=== PATIENT | male | born 1970 | race Caucasian/White ===

== ENCOUNTER 2020-10-13 19:23 | Emergency (ER) | payer BC ==
[2020-10-13] MEDS ORDERED: Aspirin 81 MG Tab.Chew PO ONE (19:35)
[2020-10-13] MEDS ORDERED: Sodium Chloride 0.9% 10 ML Syringe FLUSH PRN (19:35)
--- NOTE | 2020-10-13 19:42 | EDM.PDOC ---
ED HPI GENERAL MEDICAL PROBLEM - General Chief Complaint: Chest Pain Stated Complaint: CHEST PAIN, LT ARM NUMBNESS Time Seen by Provider: 10/13/20 19:25 Source of Information: Reports: Patient History Limitations: Reports: No Limitations - History of Present Illness INITIAL COMMENTS - FREE TEXT/NARRATIVE: Patient presents to the ER today due to new onset back pain at 1700, remained present throughout his daughter's volleyball game then decreased in nature and mid-sternal chest pain started as they left game. He states that then his left arm felt numb sensation stll present rated as 1/10). He states when he had sharp episode [employer] it was 7/10 sharp, now in ER rates CP as dull/pressure sensation 4/10. Does report sensation of SOB with CP episode. Denies any other associated symptoms PMH/Meds--denies Allergies--Sulfa Tob/Drug--denies EtOH--occassional Denies having had COVID infection, states he has had his COVID immunization (Apr 2020) Onset: Today Onset Time: 17:00 Location: Reports: Chest, Back, Upper Extremity, Left Quality: Reports: Dull, Pressure, Sharp, Stabbing, Other (numbness sensation to arm) Associated Symptoms: Reports: Shortness of Breath chest pain Pain Score (Numeric/FACES): 4 upper back pain Pain Score (Numeric/FACES): 1 - Related Data Allergies Allergy/AdvReac Type Severity Reaction Status Date / Time Sulfa (Sulfonamide Allergy Airway Verified 10/13/20 19:32 Antibiotics) Tightness Home Meds: Home Meds NK [No Known Home Meds] 10/13/20 [History] ED ROS GENERAL - Review of Systems Review Of Systems: Comprehensive ROS is negative, except as noted in HPI. Constitutional: Reports: No Symptoms HEENT: Reports: No Symptoms Respiratory: Reports: Shortness of Breath Cardiovascular: Reports: Chest Pain GI/Abdominal: Reports: No Symptoms Musculoskeletal: Reports: Arm Pain Neurological: Reports: No Symptoms ED EXAM, GENERAL - Physical Exam Exam: See Below Exam Limited By: No Limitations General Appearance: Alert, WD/WN, No Apparent Distress Eye Exam: Bilateral Eye: EOMI, Normal Inspection, PERRL Ears: Normal External Exam, Hearing Grossly Normal Nose: Normal Inspection Throat/Mouth: Normal Inspection, Normal Voice, No Airway Compromise Head: Atraumatic, Normocephalic Neck: Normal Inspection, Supple, Full Range of Motion Respiratory/Chest: No Respiratory Distress, Lungs Clear, Normal Breath Sounds. No: Chest Non-Tender (palpatory tenderness mid-sternal to left side of chest similar to pain he is having) Cardiovascular: Normal Peripheral Pulses, Regular Rate, Rhythm, No Edema, No Murmur Peripheral Pulses: 2+: Radial (L), Radial (R), Dorsalis Pedis (L), Dorsalis Pedis (R) GI/Abdominal: Normal Bowel Sounds, Soft, Non-Tender, No Distention (Male) Exam: Deferred Rectal (Males) Exam: Deferred Back Exam: Normal Inspection, Full Range of Motion Extremities: Normal Inspection, Normal Range of Motion, No Pedal Edema, Normal Capillary Refill Neurological: Alert, Oriented, Normal Cognition, No Motor/Sensory Deficits Psychiatric: Normal Affect, Normal Mood Skin Exam: Warm, Dry, Intact, Normal Color #1 Interpretation EKG Date: 10/13/20 Time: 19:25 (read at bedside by this physician) Rhythm: NSR Rate (Beats/Min): 73 [place]: Normal P-Wave: Present (IL-148) QRS: Normal (QRS-85) ST-T: Normal QT: Normal (QT/QTc-380/419) Comparison: NA - No Prior EKG EKG Interpretation Comments: normal EKG Course - Vital Signs Text/Narrative:: 2033--room to discuss with patient and today's ER findings at this point initial troponin is negative as well as initial EKG chest x-ray was unremarkable as well as remaining labs except for creatinine1.4 was noted to be mildly elevated without elevation of BUN. Patient was able to pull up his labs from recent physical his total cholesterol was 207 triglycerides 252 LDL 102 HDL was 52 as well as his creatinine0.88 is with patient recommendation for repeat troponin in 2 hours/2129 would be 4 h pain onset would expect at that point to see some elevation if this was cardiac in nature. Given musculoskeletal discomfort during my exam discussed with him dose of Toradol which she has agreed to. Did discuss with patient recommendation for repeat labs with good hydration over the next week through his PCM to recheck creatinine it is likely that he is been low on his fluid intake. He states that he has been out camping and [place] have been at the music festival for the last 4 days and he may have had some decrease in oral intake. ACC/AHA 10-year risk assessment is 3.3% 2206--in room to d/w patient and repeat troponin remains negative. patient states that pain has improved after IV toradol. d/w them 10-yr risk assessment 3.3%. at this time they are comfortable with d/c home, return if any worsening symptoms of concern to nearest ER. recommend PCM follow up in the next 3-5 d ays for further evaluation/referral and repeat labs as previously discussed. verbalized understanding/agreement with plan of care. ready for d/c Last Recorded V/S: Last Vital Signs Temp 98.2 F 10/13/20 19:42 Pulse 67 10/13/20 21:10 Resp 18 10/13/20 21:10 BP 117/75 10/13/20 21:10 Pulse Ox 94 L 10/13/20 21:10 - Orders/Labs/Meds Orders: Active Orders 24 hr Category Date Time Status Cardiac Monitoring [RC] .As Directed Care 10/13/20 19:35 Active EKG Documentation Completion [RC] ASDIRECTED Care 10/13/20 19:36 Active Oxygen Therapy [RC] PRN Care 10/13/20 19:35 Active Pulse Oximetry [RC] CONTINUOUS Care 10/13/20 19:35 Active Sodium Chloride 0.9% [Saline Flush] Med 10/13/20 19:35 Active 10 ml FLUSH ASDIRECTED PRN Saline Lock Insert [OM.PC] Stat Oth 10/13/20 19:35 Ordered EKG 12 Lead [EK] Stat Ther 10/13/20 19:36 Ordered Medication Orders Sodium Chloride (Sodium Chloride 0.9% 10 Ml Syringe) 10 ml FLUSH ASDIRECTED PRN PRN Reason: Keep Vein Open Last Admin: 10/13/20 19:49 Dose: 10 ml Documented by: BINTA Labs: Laboratory Tests 10/13/20 10/13/20 10/13/20 Range/Units 19:35 19:35 21:37 WBC 5.5 (4.5-11.0) K/uL RBC 5.12 (4.30-5.90) M/uL Hgb 14.7 (12.0-15.0) g/dL Hct 44.0 (40.0-54.0) % MCV 86 (80-98) fL MCH 29 (27-31) pg MCHC 33 (32-36) % Plt Count 194 (150-400) K/uL Neut % (Auto) 45.6 (36-66) % Lymph % (Auto) 37.4 (24-44) % Divide % (Auto) 11.3 H (2-6) % Eos % (Auto) 5.7 H (2-4) % Baso % (Auto) 0.0 (0-1) % Sodium 141 (140-148) mmol/L Potassium 4.2 (3.6-5.2) mmol/L Chloride 104 (100-108) mmol/L Carbon Dioxide 31 (21-32) mmol/L Anion Gap 6.5 (5.0-14.0) mmol/L BUN 18 (7-18) mg/dL Creatinine 1.4 H (0.8-1.3) mg/dL Est Cr Clr Drug Dosing 75.45 mL/min Estimated GFR (MDRD) 54 L (>60) Glucose 91 (74-106) mg/dL Calcium 8.7 (8.5-10.1) mg/dL Magnesium 2.2 (1.8-2.4) mg/dL Total Bilirubin 0.3 (0.2-1.0) mg/dL AST 26 (15-37) U/L ALT 65 (12-78) U/L Alkaline Phosphatase 77 (46-116) U/L Troponin I < 0.017 < 0.017 (0.000-0.056) ng/mL Total Protein 7.1 (6.4-8.2) g/dL Albumin 3.7 (3.4-5.0) g/dL Globulin 3.4 (2.3-3.5) g/dL Albumin/Globulin Ratio 1.1 L (1.2-2.2) 2021--negative trop , 0.017, of note he does have mildly elevated creat- 1.4/decreased GFR-54 with normal BUN. Will recommend ensuring he is drinking plenty of fluids and have this followed up with PCM in 1 week for repeat lab. will repeat trop in 2 hours for trending. Meds: Medications Generic Name Dose Route Start Last Admin Trade Name Freq PRN Reason Stop Dose Admin Sodium Chloride 10 ml 10/13/20 19:35 10/13/20 19:49 Sodium Chloride 0.9% 10 Ml Syringe FLUSH 10 ml ASDIRECTED PRN Administration Keep Vein Open Discontinued Medications Generic Name Dose Route Start Last Admin Trade Name Jayshree PRN Reason Stop Dose Admin Aspirin 324 mg 10/13/20 19:35 10/13/20 19:47 Aspirin 81 Mg Tab.Chew PO 10/13/20 19:36 324 mg ONETIME ONE Administration Ketorolac Tromethamine 30 mg 10/13/20 20:39 10/13/20 21:00 Ketorolac 30 Mg/Ml Sdv IVPUSH 10/13/20 20:40 30 mg ONETIME ONE Administration Departure - Departure Time of Disposition: 22:14 Disposition: Home, Self-Care 01 Condition: Good Clinical Impression: Chest pain, Anterior chest wall pain, Elevated serum creatinine Instructions: Nonspecific Chest Pain, Adult, [id number], Chest Wall Pain, [id number] Referrals: [facility] [Primary Care Provider] - Forms: ED Department Discharge Additional Instructions: Ensure you are drinking plenty of fluids--water, juice, sports drinks of choice to stay well hydrated If you have any increasing symptoms or further concerns return to the ER for further evaluation Contact your family doctor/PCM for ER follow up care in the next 3-5 days--recommended by this physician is further cardiac testing (this may be through a cardiac stress test or cardiac CT scan). It is also recommended that your have your creatinine recheck in the next week after ensuring your are d rinking plenty of fluids to ensure your kidneys are well hydrated Sepsis Event Note (ED) - Focused Exam Vital Signs: Vital Signs Temp Pulse Resp BP Pulse Ox 10/13/20 21:10 67 18 117/75 94 L 10/13/20 20:56 69 14 123/72 95 10/13/20 20:39 69 18 131/82 95 10/13/20 20:25 70 21 H 126/81 96 10/13/20 20:09 74 17 117/74 97 10/13/20 19:55 79 11 L 117/78 95 10/13/20 19:42 98.2 F 77 13 125/86 98 10/13/20 19:39 78 12 133/88 96 10/13/20 19:32 98.2 F 77 13 125/86 98 - My Orders Last 24 Hours: My Active Orders 10/13/20 19:35 Cardiac Monitoring [RC] .As Directed Oxygen Therapy [RC] PRN Pulse Oximetry [RC] CONTINUOUS Sodium Chloride 0.9% [Saline Flush] 10 ml FLUSH ASDIRECTED PRN Saline Lock Insert [OM.PC] Stat 10/13/20 19:36 EKG Documentation Completion [RC] ASDIRECTED EKG 12 Lead [EK] Stat - Assessment/Plan Last 24 Hours: My Active Orders 10/13/20 19:35 Cardiac Monitoring [RC] .As Directed Oxygen Therapy [RC] PRN Pulse Oximetry [RC] CONTINUOUS Sodium Chloride 0.9% [Saline Flush] 10 ml FLUSH ASDIRECTED PRN Saline Lock Insert [OM.PC] Stat 10/13/20 19:36 EKG Documentation Completion [RC] ASDIRECTED EKG 12 Lead [EK] Stat
--- NOTE | 2020-10-13 20:17 | CRLCR ---
For Patients: As a result of the Century Cures Act, medical imaging exams and procedure reports are released immediately into your electronic medical record. You may view this report before your referring provider. If you have questions, please contact your health care provider. INDICATION: CHEST PAIN TECHNIQUE: Chest 1 view. COMPARISON: None. FINDINGS: Cardiovascular and mediastinum: Heart size and vasculature are normal in caliber and appearance. Mediastinum is within normal limits. Lungs and pleural space: Lungs are clear. No sign of infiltrate or mass. No sign of pleural effusion. No pneumothorax. Bones and soft tissues: No significant findings. IMPRESSION: Unremarkable chest. Dictated by: Donn Gonzalez MD @ 10/13/2020 20:16:31 (Electronically Signed)
[2020-10-13] MEDS ORDERED: Ketorolac 30 MG/ML SDV IVPUSH ONE (20:39)
== END 2020-10-13 22:27 | disposition home or self-care (01) ==
LOC: JP.ED 19:23
DX: R07.2 Precordial pain (principal); R07.89 Other chest pain; R94.4 Abnormal results of kidney function studies; Z88.2 Allergy status to sulfonamides
CPT/HCPCS: 36415; 71045; 80053; 83735; 84484; 85025; 93005; 96374; 99285; A9270; J1885

== ENCOUNTER 2023-03-11 07:24 | Day surgery (SDC) | payer BC, OTHER ==
[~2023-03-11 07:24] MED LIST: Midazolam 1 MG/ML 2 ML SDV ONE; Propofol 200 MG/20 ML SDV ONE; fentaNYL 50 MCG/ML SDV ONE
[2023-03-11] MEDS ORDERED: Sodium Chloride 0.9% 1,000 ML IV SCH (08:00)
== END 2023-03-11 09:40 | disposition home or self-care (01) ==
LOC: JP.SDS 07:24
PROVIDERS: ATTEND Surgery
DX: K29.70 Gastritis, unspecified, without bleeding (principal)
CPT/HCPCS: 43239; 88305; J2250; J2704; J3010; J7030

== ENCOUNTER 2025-02-18 07:06 | Emergency (ER) | payer OTHER ==
[2025-02-18 07:30] LABS: BASOPHILS ABSOLUTE AUTO 0.01 K/uL (0.00-0.10); BASOPHILS PERCENT AUTO 0.2 % (0.1-1.3); EOSINOPHILS ABSOLUTE AUTO 0.29 K/uL (0.00-0.40); EOSINOPHILS PERCENT AUTO 6.4 % (0.0-5.4); IMMATURE GRAN ABSOLUTE AUTO 0.01 K/uL (0.00-0.23); IMMATURE GRAN PERCENT AUTO 0.2 % (0.0-0.7); LYMPHOCYTES ABSOLUTE AUTO 1.25 K/uL (0.8-3.3); LYMPHOCYTES PERCENT AUTO 27.5 % (11.4-47.7); MONOCYTES ABSOLUTE AUTO 0.44 K/uL (0.20-0.90); MONOCYTES PERCENT AUTO 9.7 % (3.3-12.6); NEUTROPHILS ABSOLUTE AUTO 2.54 K/uL (1.0-7.6); NEUTROPHILS PERCENT AUTO 56.0 % (40.0-78.1); PLATELET COUNT,PLT 181 K/uL (130-375); RED BLOOD CELL COUNT 5.16 M/uL (4.14-5.76); WHITE BLOOD CELL COUNT,WBC 4.5 K/uL (3.2-11.0)
[2025-02-18] MEDS: Aspirin 325 MG Tab.EC PO ONE (07:42)
[2025-02-18 07:54] LABS: LACTIC ACID 0.8 mmol/L (0.4-2.0)
[2025-02-18 07:55] LABS: A/G RATIO 1.1 (1.2-2.2); ALANINE AMINOTRANSFERASE,ALT 59 U/L (12-78); ASPARTATE AMNIOTRANSFERASE,AST 30 U/L (15-37); BILIRUBIN TOTAL 0.6 mg/dL (0.2-1.0); BLOOD UREA NITROGEN,BUN 13 mg/dL (7-18); CARBON DIOXIDE,CO2 30 mmol/L (21-32); CHLORIDE,CL 105 mmol/L (100-108); CREATININE 0.9 mg/dL (0.8-1.3); EST CRCL DRUG DOSING (CG) 104.81 mL/min; ESTIMATED GFR 101 mL/min (>60); GLUCOSE RANDOM 99 mg/dL (74-106); POTASSIUM,K 4.1 mmol/L (3.6-5.2); PRO B-TYPE NATRIUR PEPT,BNPPRO 55 pg/mL (5-125); PROTEIN TOTAL,TP 7.4 g/dL (6.4-8.2); SODIUM,NA 140 mmol/L (140-148); TROPONIN I HIGH SENSITIVITY 13.7 pg/mL (<=60.3)
[2025-02-18 08:29] LABS: APPEARANCE,URINE CLEAR (CLEAR); GLUCOSE,URINE NEGATIVE (NEGATIVE); OCCULT BLOOD,URINE NEGATIVE (NEGATIVE)
[2025-02-18] MEDS: Nitroglycerin 0.4 MG Tab.SL SL ONE (08:30)
== END 2025-02-18 10:19 | disposition home or self-care (01) ==
LOC: JP.ED 07:06
DX: I20.89 Other forms of angina pectoris (principal); Z86.16 Personal history of COVID-19; Z90.49 Acquired absence of other specified parts of digestive tract; Z88.2 Allergy status to sulfonamides; Z79.82 Long term (current) use of aspirin; Z79.899 Other long term (current) drug therapy
CPT/HCPCS: 36415; 71046; 80053; 81003; 83605; 83880; 84443; 84484; 85025; 85379; 93005; 99285; A9270